=== PATIENT | female | born 1960 | race Caucasian/White ===

== ENCOUNTER → 2017-03-13 | Outpatient (CLI) | payer BC ==
--- NOTE | 2017-03-13 20:01 | Diagnostic Imaging Report ---
Left breast diagnostic mammogram. The current study was also evaluated with a Computer Aided Detection (CAD) system. INDICATION: Calcifications in the left breast. FINDINGS: There are calcifications again seen in the central slightly inferior aspect of the left breast which are likely benign. They are a few small microcalcifications and are loosely clustered without significant change. Background dense parenchyma is again seen. IMPRESSION: Unchanged loosely clustered small calcifications in the central slightly inferior aspect of the left breast, likely benign. Another followup when the patient is due for her bilateral mammogram in July 2017 is recommended. ACR BI-RADS Category 3: Probably benign findings. Result letter will be mailed to the patient. Note: At least 10% of breast cancer is not imaged by mammography. Dictated by: Dictated on workstation # [id number]
== END ==
LOC: RAD 07:46
PROVIDERS: ATTEND Obstetrics & Gynecology
DX: R92.8 Other abnormal and inconclusive findings on diagnostic imaging of breast (principal)

== ENCOUNTER → 2017-08-27 | Outpatient (CLI) | payer BC ==
--- NOTE | 2017-08-27 10:18 | Diagnostic Imaging Report ---
EXAMINATION: Bilateral diagnostic mammogram with tomography evaluation. The current study was also evaluated with a Computer Aided Detection (CAD) system. COMPARISON: 03/13/2017. FINDINGS: The breasts are composed of heterogeneously dense parenchyma which may decrease mammographic sensitivity. The previously seen loosely clustered calcifications in the left breast demonstrate no significant change and no adverse development suggestive of a benign etiology. IMPRESSION: Stable mammographic findings with no evidence of malignancy. Annual screening mammograms are recommended. ACR BI-RADS Category 2: Benign findings. Result letter will be mailed to the patient. Note: At least 10% of breast cancer is not imaged by mammography. Dictated by: Dictated on workstation # [id number]
== END ==
LOC: RAD 09:11
PROVIDERS: ATTEND Obstetrics & Gynecology
DX: R92.8 Other abnormal and inconclusive findings on diagnostic imaging of breast (principal)
CPT/HCPCS: 77066

== ENCOUNTER → 2018-08-15 | Outpatient (CLI) | payer BC ==
--- NOTE | 2018-08-15 11:56 | Diagnostic Imaging Report ---
Indication: Palpable lump in the left breast. This study is performed for further evaluation. Correlation is made with prior mammogram from 08/27/2017 and 03/13/2017 as well as 08/16/2016. 2-D and 3-D bilateral diagnostic mammography was performed with CAD. BB marker was placed at the area of palpable abnormality in the lower inner left breast. Scattered fibroglandular densities are identified bilaterally. No mass or malignant-appearing microcalcifications are seen. There are benign calcifications noted. The axillae are unremarkable. Impression: No mammographic abnormality is seen. Even so, sonographic interrogation of the area of palpable abnormality in the left breast is recommended and will be performed today. BI-RADS 0 ACR BI-RADS Category 0: Incomplete. (Needs additional imaging evaluation). Result letter will be mailed to the patient. Note: At least 10% of breast cancer is not imaged by mammography. Dictated by: Dictated on workstation # [id number]
--- NOTE | 2018-08-15 18:43 | Diagnostic Imaging Report ---
INDICATION: Left breast lump in the lower inner aspect. EXAMINATION: Interrogation of the area of lump in the lower inner left breast was performed. FINDINGS: No sonographic abnormality is seen. No solid or cystic mass is detected. IMPRESSION: No sonographic abnormality is seen. Continued close clinical and self breast exam is recommended to confirm stability of the palpable abnormality. ACR BI-RADS Category 1: Negative. Result letter will be mailed to the patient. Note: At least 10% of breast cancer is not imaged by mammography. Dictated by: Dictated on workstation # [id number]
== END ==
LOC: RAD 11:28
PROVIDERS: ATTEND Obstetrics & Gynecology
DX: N63.24 Unspecified lump in the left breast, lower inner quadrant (principal)
CPT/HCPCS: 76642; 77066

== ENCOUNTER → 2019-09-12 | Outpatient (CLI) | payer BC ==
--- NOTE | 2019-09-12 14:17 | Diagnostic Imaging Report ---
INDICATION: Routine screening. Comparison is made with prior mammograms from 08/15/2018 and 08/27/2017. 2-D and 3-D bilateral screening mammography was performed. The current study was also evaluated with a Computer Aided Detection (CAD) system. 3-D tomosynthesis was also performed and reviewed. FINDINGS: Scattered fibroglandular densities are identified bilaterally. The parenchymal pattern is stable. There are benign calcifications. No mass or malignant-appearing microcalcifications are seen. Axillae are unremarkable. IMPRESSION: No mammographic features suspicious for malignancy are identified. ACR BI-RADS Category 2: Benign findings. Result letter will be mailed to the patient. Note: At least 10% of breast cancer is not imaged by mammography. Dictated by: Dictated on workstation # [id number]
== END ==
LOC: RAD 08:58
PROVIDERS: ATTEND Obstetrics & Gynecology
DX: Z12.31 Encounter for screening mammogram for malignant neoplasm of breast (principal)
CPT/HCPCS: 77067

== ENCOUNTER → 2020-09-13 | Outpatient (CLI) | payer BC ==
--- NOTE | 2020-09-13 12:23 | Diagnostic Imaging Report ---
INDICATION: Routine screening. Comparison is made with prior mammogram 09/12/2019 and 08/15/2018. 2-D and 3-D bilateral screening mammography was performed with CAD. Scattered fibroglandular densities are identified bilaterally. The parenchymal pattern is stable. There are benign calcifications present. No mass or malignant appearing microcalcifications are seen. Axillae are unremarkable. IMPRESSION: BI-RADS Category 2 No mammographic features suspicious for malignancy are identified. ACR BI-RADS Category 2: Benign findings. Result letter will be mailed to the patient. Note: At least 10% of breast cancer is not imaged by mammography. Dictated by: Dictated on workstation # [id number]
== END ==
LOC: RAD 09:24
PROVIDERS: ATTEND Obstetrics & Gynecology
DX: Z12.31 Encounter for screening mammogram for malignant neoplasm of breast (principal)
CPT/HCPCS: 77063; 77067

== ENCOUNTER → 2021-09-16 | Outpatient (CLI) | payer BC ==
--- NOTE | 2021-09-16 12:22 | Diagnostic Imaging Report ---
Digital mammogram bilateral screening COMPARISON: This study was compared to the prior exams of 09/13/2020, 09/12/2019 and 08/15/2018. At this time, there are no current complaints. The current study was also evaluated with a Computer Aided Detection (CAD) system. FINDINGS: The fibroglandular tissue in both breasts is heterogeneously dense. This does limit the sensitivity of this exam. Overall, there does not appear to have been any significant change when compared to the prior study. No primary or secondary sign of malignancy is noted. IMPRESSION: There is no radiographic evidence for malignancy. ACR category 1 ACR BI-RADS Category 1: Negative. Result letter will be mailed to the patient. Note: At least 10% of breast cancer is not imaged by mammography. Dictated by: Dictated on workstation # [id number]
== END ==
LOC: RAD 10:12
PROVIDERS: ATTEND Surgery
DX: Z12.31 Encounter for screening mammogram for malignant neoplasm of breast (principal)
CPT/HCPCS: 77063; 77067

== ENCOUNTER → 2022-09-19 | Outpatient (CLI) | payer BC ==
--- NOTE | 2022-09-20 09:05 | Diagnostic Imaging Report ---
Indication: Routine screening. Comparison is made with prior mammogram from 09/16/2021 and 09/13/2020. 2-D and 3-D bilateral screening mammography was performed with CAD. CAD is utilized. The current study was also evaluated with a Computer Aided Detection (CAD) system. Scattered fibroglandular densities are identified bilaterally. There are occasional benign calcifications. No dominant mass or malignant-appearing microcalcifications are seen. Axillae are unremarkable. IMPRESSION: BI-RADS Category 2 No mammographic features suspicious for malignancy are identified. ACR BI-RADS Category 2: Benign findings. Result letter will be mailed to the patient. Note: At least 10% of breast cancer is not imaged by mammography. Dictated by: Dictated on workstation # [id number]
== END ==
LOC: RAD 08:07
PROVIDERS: ATTEND Obstetrics & Gynecology
DX: Z12.31 Encounter for screening mammogram for malignant neoplasm of breast (principal)
CPT/HCPCS: 77063; 77067

== ENCOUNTER → 2023-07-18 | Outpatient (CLI) | payer BC ==
--- NOTE | 2023-07-18 14:59 | Diagnostic Imaging Report ---
INDICATION: Palpable lump left breast. Correlation is made with the diagnostic mammogram earlier the same day. Sonographic interrogation of the area palpable abnormality in the lower left breast was performed. There is a cluster of cysts at the 5:30 location, 1 to 2 cm from the nipple. Multiple small cysts are present, ranging in size from 3 to 5 mm. No solid masses are detected. IMPRESSION: Cluster of cysts 5:30 location left breast, corresponding to the palpable and mammographic abnormality. The patient may return to routine annual screening mammography. ACR BI-RADS Category 2: Benign findings. Result letter will be mailed to the patient. Note: At least 10% of breast cancer is not imaged by mammography. BI-RADS Category 2 Dictated by: Dictated on workstation # [id number]
--- NOTE | 2023-07-18 15:21 | Diagnostic Imaging Report ---
INDICATION: Palpable lump in the left breast. COMPARISON: Correlation is made with the prior mammogram from 09/19/2022 and 09/16/2021. TECHNIQUE: Unilateral left 2D and 3D diagnostic mammography was performed with CAD. FINDINGS: A BB marker was placed at the area of palpable abnormality in the lower left breast. There is some slight nodularity at this location. No other masses are seen. No malignant-appearing microcalcifications are identified. The left axilla is unremarkable. IMPRESSION: Mild nodularity in the inferior left breast at the area of palpable abnormality. Further evaluation of this area with ultrasound is recommended and will be performed today. ACR BI-RADS Category 0: Incomplete. (Needs additional imaging evaluation). Result letter will be mailed to the patient. Note: At least 10% of breast cancer is not imaged by mammography. Dictated by: Dictated on workstation # [id number]
== END ==
LOC: RAD 12:45
PROVIDERS: ATTEND Nurse Practitioner Family
DX: N60.12 Diffuse cystic mastopathy of left breast (principal)
CPT/HCPCS: 76642; 77065; G0279

== ENCOUNTER → 2023-07-23 | Outpatient (CLI) | payer BC ==
[~2023-07-23] VITALS: Ht 167.7 cm; Wt 68.7 kg
[~2023-07-23] MED LIST: ESTR1PAT72 TD; PROG200C10 PO
== END | disposition home or self-care (01) ==
LOC: PREOP 05:29
PROVIDERS: ATTEND Podiatrist Foot & Ankle Surgery
DX: Z01.818 Encounter for other preprocedural examination (principal)

== ENCOUNTER 2023-07-27 08:01 | Day surgery (SDC) | payer BC ==
[~2023-07-27] VITALS: Ht 167.7 cm; Wt 68.7 kg
[2023-07-27] VITALS (11 sets, daily range): BP systolic 87–117; BP diastolic 49–87
[2023-07-27] MEDS ORDERED: NS (IVPB) 50 ML 50 ML ONE (08:13)
[2023-07-27] MEDS ORDERED: ceFAZolin INJECTION 1,000 MG ONE (08:13)
[2023-07-27] MEDS ORDERED: ceFAZolin INJECTION 1,000 MG in NS (IVPB) 50 ML 50 ML IV ONE (08:15)
[2023-07-27] MEDS ORDERED: LACTATED RINGERS 1,000 ML 1,000 ML IV PRN (08:15)
[2023-07-27] MEDS ORDERED: SCOPOLAMINE 1.5 MG PATCH ONE (09:51)
[2023-07-27] MEDS ORDERED: FAMOTIDINE INJ 20MG/2ML VIAL ONE (09:51)
[2023-07-27] MEDS ORDERED: ONDANSETRON INJECTION 4 MG/2 ML (SDV) ONE ×2 (09:51→09:56)
[2023-07-27] MEDS ORDERED: MIDAZOLAM INJ 2 MG/2 ML VIAL ONE (09:56)
[2023-07-27] MEDS ORDERED: dexAMETHasone INJ 10 MG/ML 1 ML VIAL ONE (09:56)
[2023-07-27] MEDS ORDERED: SEVOFLURANE (ULTANE) 15 ML INHAL SOLN ONE ×2 (09:56→11:43)
[2023-07-27] MEDS ORDERED: proPOfol INJECTION 200 MG/20 ML VIAL IV ONE (09:56)
[2023-07-27] MEDS ORDERED: LIDOCAINE PF 2% 5 ML VIAL ONE (09:56)
[2023-07-27] MEDS ORDERED: fentaNYL INJECTION 100 MCG/2 ML VIAL ONE (09:56)
[2023-07-27] MEDS ORDERED: SCOPOLAMINE 1.5 MG PATCH TD ONE (10:00)
[2023-07-27] MEDS ORDERED: FAMOTIDINE INJ 20MG/2ML VIAL IVP ONE (10:00)
[2023-07-27] MEDS ORDERED: ONDANSETRON INJECTION 4 MG/2 ML (SDV) IVP ONE (10:00)
--- NOTE | 2023-07-27 10:15 | Progress Note-Pre Operative ---
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
[2023-07-27] MEDS ORDERED: BUPIVACAINE 0.5% 30 ML VIAL ONE (10:22)
[2023-07-27] MEDS ORDERED: LIDOCAINE 1% INJ 20 ML VIAL ONE (10:22)
--- NOTE | 2023-07-27 12:02 | Progress Note-Post Operative ---
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
[2023-07-27] MEDS ORDERED: CEPH500C PO (12:05)
[2023-07-27] MEDS ORDERED: ACHD5005 PO (12:05)
--- NOTE | 2023-07-27 12:06 | Anesthesia-General Post-Op ---
General Patient Condition Mental Status/LOC: Same as Preop Cardiovascular: Satisfactory Nausea/Vomiting: Absent Respiratory: Satisfactory Pain: Controlled Complications: Absent Post Op Complications Complications None Follow Up Care/Instructions Patient Instructions None needed. Anesthesia/Patient Condition Patient Condition Patient is doing well, no complaints, stable vital signs, no apparent adverse anesthesia problems. No complications reported per nursing. DONTAE COX CRNA Jul 27, 2023 12:05
[2023-07-27] MEDS ORDERED: HYDROcodone/ACETAMINOPHEN 5 MG/325 MG TABLET PO PRN (12:15)
[2023-07-27] MEDS ORDERED: morphine INJ 10 MG/ML 1ML (SYR OR VIAL) IVP ONE (12:15)
[2023-07-27] MEDS ORDERED: LACTATED RINGERS 1,000 ML 1,000 ML IV SCH (12:15)
[2023-07-27] MEDS ORDERED: MEPERIDINE INJ 50 MG/ML VIAL IVP ONE (12:15)
[2023-07-27] MEDS: ONDANSETRON INJECTION 4 MG/2 ML (SDV) IVP PRN ×2 (12:18→12:38)
[2023-07-27] MEDS ORDERED: PROM25TA14 PO (13:26)
--- NOTE | 2023-07-27 18:05 | Diagnostic Imaging Report ---
INDICATION: Postoperative check EXAMINATION: Left foot 07/27/2023 FINDINGS: 2 views of the foot. There is an overlying bandaging or splint-like material. A sideplate and intervening screws traverse the 1st tarsometatarsal joint with a distally threaded screw extending from the base of the 1st metatarsal into the adjacent tarsals. The orthopedic hardware unremarkable. Surrounding soft tissue swelling and subcutaneous air consistent with recent surgery. IMPRESSION: 1. Expected uncomplicated postoperative findings. Dictated by: Dictated on workstation # [id number]
--- NOTE | 2023-07-27 21:47 | OPERATIVE REPORT ---
DATE OF SERVICE: 07/27/2023 SURGEON: Rosana Santos DPM. PREOPERATIVE DIAGNOSIS: Degenerative joint disease, left first metatarsal cuneiform joint. POSTOPERATIVE DIAGNOSIS: Degenerative joint disease, left first metatarsal cuneiform joint. PROCEDURE: Arthrodesis, left first metatarsal cuneiform joint. WOUND CLASS: Clean. ANESTHESIA: General. HEMOSTASIS: Pneumatic thigh tourniquet at 250 mmHg. INDICATIONS: This 63-year-old female presents complaining of a painful left mid foot. Conservative therapy is met with unsatisfactory results and the patient is agreeable to surgical intervention after risks and complications were discussed at length. No guarantees were extended to the patient and she is willing to proceed. DESCRIPTION OF PROCEDURE: The patient was brought back to the operating table, placed in secure supine position. A general anesthetic was then induced. Appropriate timeout was performed. A pneumatic thigh tourniquet was placed on the left lower extremity over several layers of padding. The left foot was then anesthetized utilizing 10 mL of 1:1 mixture of 1% Xylocaine, 0.5% Marcaine injected in a Dickerson block. The left foot was then prepped and draped in the normal sterile manner. The left foot was then elevated allowed to exsanguinate after which the tourniquet was inflated to 250 mmHg. Attention was then directed to the dorsal aspect of the left first metatarsal cuneiform joint where a 4 cm longitudinal linear incision was created. The incision was deepened in the same plane with great care to identify and retract all vital neurovascular structures. Only necessary blood vessels were cauterized as encountered. The incision was deepened down to the capsular tissue where a longitudinal capsulotomy was performed. This demonstrated a hypertrophic eminence to the first metatarsal cuneiform articulation area, which was resected utilizing a power sagittal saw and further contoured with a rasp. Next, utilizing a power sagittal saw, the articular cartilage to the first metatarsal base and to the distal aspect of the medial cuneiform were resected after which fenestration was performed. The wound was flushed with copious amounts of normal saline. Next, utilizing a Carlton 28 first metatarsal cuneiform system, there was arthrodesis performed. First, there was a K-wire driven from plantar distal to the proximal dorsal securing the arthrodesis site in a secure position. This was confirmed by intraoperative C-arm. Next, utilizing the Carlton 28 left Lapidus plate, a good alignment was appreciated at this time. A lag screw was driven from dorsal distal to plantar proximal across the arthrodesis site. This was a 3.5 headed screw of 40 mm of length. Excellent compression was appreciated across the arthrodesis site. Next, the proximal screws to the Lapidus plate were applied. These were 3.5 screws, one of 16 and the other one 14 mm of length and the two distal screws were 3.5, 14 and another 14 mm length. Excellent fixation and compression was appreciated at this time. The wound was flushed with copious amounts of normal saline. Closure was then performed in layers. Deep closure was performed with 3-0 Vicryl, superficial with 4-0 Vicryl and skin closure with V-Loc. Postoperative injection consisted of 10 mL of 0.5% Marcaine injected in a local infusion to the surgical site. Postoperative dressing consisted of Betadine-soaked Adaptic, sterile 4 x 4, sterile Kerlix, all secured with a Coban wrap. The patient tolerated the anesthesia and procedure well and was transported from the operating room to the recovery area with vital signs stable and vascular status intact to the left foot. She is to be nonweightbearing to left lower extremity. The patient was cautioned in regards to being on her hormone therapy. She indicated that she has talked to her primary care and feels that it is safe enough to go on to [ ] as well as utilizing her dermal patch. She understands the risk of a blood clot. Advised her not to be on the estrogen, but she feels confident that she is going to be fine. This patient is to be in the office in 10 days for followup or sooner if necessary. Job ID: [id number] DocumentID: [id number] Dictated Date: 07/27/2023 12:13:13 Vocational Nursing Instructor Date: 07/27/2023 21:44:00 Dictated By: ROSANA SANTOS DPM
[2023-07-28] MEDS ORDERED: OXYC1TAB11 PO (05:18)
== END 2023-07-27 14:10 | disposition home or self-care (01) ==
LOC: SDC 08:01
PROVIDERS: ATTEND Podiatrist Foot & Ankle Surgery
DX: M19.072 Primary osteoarthritis, left ankle and foot (principal)
CPT/HCPCS: 28737; 73620; 87081; C1713 ×9

== ENCOUNTER 2023-07-28 04:52 | Emergency (ER) | payer BC ==
[~2023-07-28] VITALS: Ht 167.7 cm; Wt 68.0 kg
[~2023-07-28 04:52] MED LIST changes: +ACHD5005 PO; +CEPH500C PO; +PROM25TA14 PO
[2023-07-28 05:00] VITALS: BP 115/66
[2023-07-28] MEDS ORDERED: morphine INJ 4 MG/ML 1 ML (VIAL/SYRINGE) IM ONE (05:15)
[2023-07-28] MEDS ORDERED: RX-OXYCODONE/APAP 5-325 MG #4 TAB PK PO PRN (05:15)
[2023-07-28] MEDS ORDERED: OXYC1TAB11 PO (05:18)
--- NOTE | 2023-07-28 05:19 | ED Lower Extremity ---
General Chief Complaint: Post OP Complications/Pain Stated Complaint: POST OP FOOT SURGERY PX,LEFT FOOT Source: patient History of Present Illness Date Seen by Provider: Jul 28, 2023 Time Seen by Provider: 05:05 Allergies and Home Medications Allergies Coded Allergies: nitrofurantoin (Verified Allergy, Unknown, Itching, 07/27/23) thimerosal (Verified Allergy, Unknown, Rash, 07/27/23) Patient Home Medication List Cephalexin (Cephalexin) 500 Mg Capsule, 1 CAP PO TID Prescribed by: BREANNA SANTOS on 07/27/23 1205 Estradiol (Climara Patch Weekly 0.05mg/hr) 0.05 Mg/24 Hour Patch.tdwk, 1 EACH TD Weekly, (Reported) Entered as Reported by: Monique Rodriguez on 07/25/23 1104 Hydrocodone/Acetaminophen (Hydrocodone-Acetamin 5-325 mg) 5 Mg-325 Mg Tablet, 1 TAB PO Q4H PRN for PAIN-MODERATE (5-7) Prescribed by: BREANNA SANTOS on 07/27/23 1206 Progesterone,Micronized (Progesterone) 200 Mg Capsule, 200 MG PO, (Reported) Entered as Reported by: Monique Rodriguez on 07/25/23 1104 Promethazine HCl (Promethazine Tablet) 25 Mg Tablet, 25 MG PO Q6H PRN for NAUS EA/VOMITING Prescribed by: BREANNA SANTOS on 07/27/23 1326 Past Rndesfl-Mhzrym-Ycyqqs Hx Seasonal Allergies Seasonal Allergies: Yes Past Medical History Surgeries: Yes (D&C WITH ABLATION, BILATERAL CATARACT) Appendectomy, Breast, Eye Surgery, Orthopedic Respiratory: No Currently Using CPAP: No Currently Using BIPAP: No Cardiac: No Neurological: No Genitourinary: No Gastrointestinal: No Musculoskeletal: Yes Arthritis Endocrine: No HEENT: Yes (LEFT EYE RETINAL DETACHMENT WITH REPAIR) Cataract Cancer: No Psychosocial: No Integumentary: Yes (LOWER LIP LESION) Blood Disorders: Yes (HISTORY OF ANEMIA IN 20'S) Physical Exam Vital Signs Capillary Refill : Height, Weight, BMI Height: '" Weight: lbs. oz. kg; 24.42 BMI Method: Progress/Results/Core Measures Results/Orders My Orders Orders - JOHNATHON CASTILLO DO Morphine Injection (Morphine Injection (07/28/23 05:15) Rx-Oxycodone/Apap 5-325 Mg (Rx-Percocet (07/28/23 05:15) Departure Impression Primary Impression: Post-op pain Additional Impression: Status post left foot surgery Disposition: 01 HOME, SELF-CARE Condition: Stable Departure-Patient Inst. Decision time for Depature: 05:15 Referrals: NO,LOCAL PHYSICIAN (PCP) Primary Care Physician BREANNA SANTOS DPM Patient Instructions: Postoperative Pain (DC) Add. Discharge Instructions: HOLD HYDROCODONE START TAKING OXYCODONE IN PLACE OF HYDROCODONE FOLLOW ALL PREVIOUS POST OP INSTRUCTIONS FOLLOW UP WITH DR. SANTOS ON SUNDAY FOR FURTHER CARE, RETURN TO ER IF SYMPTOMS WORSEN Scripts Oxycodone HCl/Acetaminophen (Oxycodone-Acetaminophen 5-325) 5 Mg-325 Mg Tablet 1 EACH PO Q4H PRN for PAIN-MODERATE MDD 6 for 3 Days, #15 TAB 0 Refills Prov: JOHNATHON CASTILLO DO 07/28/23 JOHNATHON CASTILLO DO Jul 28, 2023 05:18
== END 2023-07-28 06:04 | disposition home or self-care (01) ==
LOC: EDUNIT# 04:52 → ER 04:55
DX: G89.18 Other acute postprocedural pain (principal); Z98.890 Other specified postprocedural states
CPT/HCPCS: 96372; 99284